=== PATIENT | female | born 1935 | race Caucasian/White ===

== ENCOUNTER 2018-01-05 16:23 | Inpatient (IN) | payer MEDICARE, OTHER ==
[~2018-01-05] VITALS: Ht 160 cm; Wt 68.0 kg
[2018-01-05 17:12] LABS: BASO # 0.1 x10^3/uL (0.0-0.2); BASO % 1 % (0-3); EOS # 0.1 x10^3/uL (0.0-0.7); EOS % 1 % (0-3); HEMATOCRIT 41.3 % (36.0-47.0); HEMOGLOBIN 13.7 g/dL (12.0-15.5); LYMPH # 2.4 x10^3/uL (1.0-4.8); LYMPH % 28 % (24-48); MEAN CORPUSCULAR HEMOGLOBIN 29 pg (25-35); MEAN CORPUSCULAR HGB CONC 33 g/dL (31-37); MEAN CORPUSCULAR VOLUME 89 fL (79-100); MONO # 0.8 x10^3/uL (0.0-1.1); MONO % 9 % (0-9); NEUT # 5.5 x10^3uL (1.8-7.7); NEUT % 62 % (31-73); PLATELET COUNT 325 x10^3/uL (140-400); RED BLOOD COUNT 4.65 x10^6/uL (3.50-5.40); RED CELL DISTRIBUTION WIDTH 14.6 % (11.5-14.5); WHITE BLOOD COUNT 8.9 x10^3/uL (4.0-11.0)
[2018-01-05 17:23] LABS: CALCIUM 9.3 mg/dL (8.5-10.1); CREATININE 0.8 mg/dL (0.6-1.0); GFR 68.7; POTASSIUM 4.3 mmol/L (3.5-5.1); TOTAL BILIRUBIN 0.4 mg/dL (0.2-1.0); TOTAL PROTEIN 8.2 g/dL (6.4-8.2)
--- NOTE | 2018-01-05 17:30 | PHYS DOC ---
Past History Past Medical History: Anemia, Dementia Past Surgical History: Other Alcohol Use: None Drug Use: None Adult General Chief Complaint Chief Complaint: PSYCH EVALUATION HPI HPI Patient is a 82 year old female who was brought in by her family members from [facility] for psych admission and medical clearance. Patient has history of dementia and was combative at arrival to ER but later on became cooperative and answered the questions appropriately. Patient is alert and oriented 1 and denies any problem. Review of Systems Review of Systems Constitutional: Denies fever or chills [] Eyes: Denies change in visual acuity, redness, or eye pain [] HENT: Denies nasal congestion or sore throat [] Respiratory: Denies cough or shortness of breath [] Cardiovascular: No additional information not addressed in HPI [] GI: Denies abdominal pain, nausea, vomiting, bloody stools or diarrhea [] : Denies dysuria or hematuria [] Musculoskeletal: Denies back pain or joint pain [] Integument: Denies rash or skin lesions [] Neurologic: Denies headache, focal weakness or sensory changes [] Endocrine: Denies polyuria or polydipsia [] All other systems were reviewed and found to be within normal limits, except as documented in this note. Physical Exam Physical Exam Constitutional: Well nourished, no acute distress, non-toxic appearance. [] HENT: Normocephalic, atraumatic, oropharynx moist, no oral exudates, nose normal. [] Eyes: PERRLA, EOMI, conjunctiva normal, no discharge. [] Neck: Normal range of motion, no tenderness, supple, no stridor. [] Cardiovascular:Heart rate regular rhythm, no murmur [] Lungs & Thorax: Bilateral breath sounds clear to auscultation [] Abdomen: Bowel sounds normal, soft, no tenderness, no masses, no pulsatile masses. [] Skin: Warm, dry, no erythema, no rash. [] Back: No tenderness, no CVA tenderness. [] Extremities: No tenderness, no cyanosis, no clubbing, ROM intact, no edema. [] Neurologic: Alert and oriented X 1, normal motor function, normal sensory function, no focal deficits noted. [] Psychologic: Affect anxious Current Patient Data Vital Signs Vital Signs Date Time Temp Pulse Resp B/P (MAP) Pulse Ox O2 Delivery O2 Flow Rate FiO2 01/05/18 16:25 97.6 69 22 97 Room Air Lab Results Laboratory Tests Test 01/05/18 16:50 White Blood Count 8.9 x10^3/uL (4.0-11.0) Red Blood Count 4.65 x10^6/uL (3.50-5.40) Hemoglobin 13.7 g/dL (12.0-15.5) Hematocrit 41.3 % (36.0-47.0) Mean Corpuscular Volume 89 fL (79-100) Mean Corpuscular Hemoglobin 29 pg (25-35) Mean Corpuscular Hemoglobin Concent 33 g/dL (31-37) Red Cell Distribution Width 14.6 % (11.5-14.5) H Platelet Count 325 x10^3/uL (140-400) Neutrophils (%) (Auto) 62 % (31-73) Lymphocytes (%) (Auto) 28 % (24-48) Monocytes (%) (Auto) 9 % (0-9) Eosinophils (%) (Auto) 1 % (0-3) Basophils (%) (Auto) 1 % (0-3) Neutrophils # (Auto) 5.5 x10^3uL (1.8-7.7) Lymphocytes # (Auto) 2.4 x10^3/uL (1.0-4.8) Monocytes # (Auto) 0.8 x10^3/uL (0.0-1.1) Eosinophils # (Auto) 0.1 x10^3/uL (0.0-0.7) Basophils # (Auto) 0.1 x10^3/uL (0.0-0.2) Sodium Level 140 mmol/L (136-145) Potassium Level 4.3 mmol/L (3.5-5.1) Chloride Level 102 mmol/L (98-107) Carbon Dioxide Level 28 mmol/L (21-32) Anion Gap 10 (6-14) Blood Urea Nitrogen 20 mg/dL (7-20) Creatinine 0.8 mg/dL (0.6-1.0) Estimated GFR (Cockcroft-Gault) 68.7 BUN/Creatinine Ratio 25 (6-20) H Glucose Level 110 mg/dL (70-99) H Calcium Level 9.3 mg/dL (8.5-10.1) Total Bilirubin 0.4 mg/dL (0.2-1.0) Aspartate Amino Transferase (AST) 16 U/L (15-37) Alanine Aminotransferase (ALT) 18 U/L (14-59) Alkaline Phosphatase 138 U/L (46-116) H Total Protein 8.2 g/dL (6.4-8.2) Albumin 4.0 g/dL (3.4-5.0) Albumin/Globulin Ratio 1.0 (1.0-1.7) EKG EKG EKG interpreted by me. EKG at 1639 showed sinus rhythm at rate of 67, leftward axis, no acute ST and T-wave abnormalities Radiology/Procedures Radiology/Procedures [] Course & Med Decision Making Course & Med Decision Making Evaluation of patient in ER showed 82-year-old male patient brought in by family members reports medical clearance for psych admission. Patient had agitated had unremarkable to ER that improved. Patient had unremarkable physical exam and labs with pending UA. Patient was medically cleared for psych admission. Dragon Disclaimer Dragon Disclaimer This electronic medical record was generated, in whole or in part, using a voice recognition dictation system. Departure Departure: Impression: Primary Impression: Medical clearance for psychiatric admission Additional Impressions: Dementia Behavior problem Disposition: 09 ADMITTED INPATIENT (at 1722 senior psych unit) Referrals: PCP,NO (PCP) Problem Qualifiers ALANNA VALENCIA MD Jan 05, 2018 17:30
[2018-01-05 18:27] LABS: BILIRUBIN,URINE NEG (NEG); CLARITY,URINE CLOUDY; COLOR,URINE YELLOW; GLUCOSE,URINE NEG (NEG); NITRITE,URINE NEG (NEG); UROBILINOGEN,URINE 0.2 mg/dL (0.2 mg/dL)
[2018-01-05 18:30] LABS: BACTERIA,URINE MANY /HPF (0-FEW)
--- NOTE | 2018-01-05 20:10 | EKG ---
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
[2018-01-06] MEDS ORDERED: MAGNESIUM HYDROXIDE 2,400 MG/30 ML ORAL.SUSP. PO PRN (00:15)
[2018-01-06] MEDS ORDERED: ACETAMINOPHEN 325 MG TABLET PO PRN (00:15)
[2018-01-06] MEDS ORDERED: METHYL SALICYLATE/MENTHOL TOPICAL OINTMENT 29GM TUBE. TP PRN (00:15)
[2018-01-06] MEDS ORDERED: MAG HYDROX/AL HYDROX/SIMETH 30 ML ORAL.SUSP PO PRN (00:15)
[2018-01-06 04:22] VITALS: BP 136/68
[2018-01-06 05:44] VITALS: BP 158/89
[2018-01-06 10:26] LABS: THYROID STIM HORMONE (TSH) 3.41 uIU/mL (0.358-3.740)
[2018-01-06 15:09] LABS: THYROXINE 7.6 ug/dL (4.5-12.0)
[2018-01-06 15:36] VITALS: BP 149/74
[2018-01-06] MEDS ORDERED: traZODone 50 MG TABLET. PO PRN (20:30)
[2018-01-06] MEDS: traZODone 50 MG TABLET. PO SCH (20:51)
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
[2018-01-06 22:14] LABS: HEMOGLOBIN A1C 5.7 % (4.8-5.6)
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
[2018-01-07 06:17] VITALS: BP 152/82
[2018-01-07 15:11] VITALS: BP 155/81
--- NOTE | 2018-01-07 20:00 | PDOC ---
Exam Note: Saul Note: Late entry for date of service January. Please also refer to the separate dictated note~for this date of service dictated separately.~Patient seen individually. Discussed the patient with Nursing staff reviewed the chart.~ Reviewed interim history and current functioning. Reviewed vital signs,~Labs/ Radiology~and current medications noted below. Continue current treatment with the changes noted in the dictated addendum note Assessment: Vital Signs: VS - Last 72 Hours, by Label Date Time Temp Pulse Resp B/P (MAP) Pulse Ox O2 Delivery O2 Flow Rate FiO2 01/07/18 15:11 97.1 73 18 155/81 (105) 98 01/07/18 06:17 97.7 69 22 152/82 (105) 98 01/06/18 15:36 98.2 63 18 149/74 (99) 96 01/06/18 05:44 97.0 62 18 158/89 (112) 97 01/06/18 04:22 97.6 18 136/68 (90) 97 01/05/18 16:25 97.6 69 22 97 Room Air Vital Signs Date Time Temp Pulse Resp B/P (MAP) Pulse Ox O2 Delivery O2 Flow Rate FiO2 01/07/18 15:11 97.1 73 18 155/81 (105) 98 01/05/18 16:25 Room Air I&O Intake and Output 01/07/18 06:59 Intake Total 480 ml Balance 480 ml Intake Oral 480 ml Current Medications: Meds: Current Medications Acetaminophen (Tylenol) 650 mg PRN Q6HRS PRN PO PAIN / TEMP; Start 01/06/18 at 00:15 Multi-Ingredient Ointment (Analgesic [place]) 1 jenelle PRN QID PRN TP MUSCLE PAIN; Start 01/06/18 at 00:15 Al Hydroxide/Mg Hydroxide (Mylanta Plus Xs) 15 ml PRN AFTMEALHC PRN PO DYSPEPSIA; Start 01/06/18 at 00:15 Magnesium Hydroxide (Milk Of Magnesia) 2,400 mg PRN QHS PRN PO CONSTIPATION; Start 01/06/18 at 00:15 Olanzapine (ZyPREXA ZYDIS) 2.5 mg PRN Q2HR PRN PO PSYCHOSIS; Start 01/06/18 at 02:00 Trazodone HCl (Desyrel) 50 mg QHS PO Last administered on 01/06/18at 20:51; Start 01/06/18 at 21:00 Trazodone HCl (Desyrel) 50 mg PRN QHS PRN PO INSOMNIA; Start 01/06/18 at 20:30 I have reviewed the current psychotropics carefully including drug interactions. Risk benefit ratio favors no change other than as noted in my dictated progress note. Diagnosis: Problems: (1) Dementia (2) Behavior problem (3) Medical clearance for psychiatric admission (4) Anxiety disorder (5) Dementia, vascular, with delusions (6) Dementia, vascular, with depression (7) Dementia in Alzheimer's disease with delusions (8) Dementia in Alzheimer's disease with depression (9) Impulse control disorder VIOLETTA DAVIES MD Jan 07, 2018 20:00
--- NOTE | 2018-01-07 20:01 | PDOC ---
Exam Note: Saul Note: Please also refer to the separate dictated note~for this date of service dictated separately.~Patient seen individually. Discussed the patient with Nursing staff reviewed the chart.~Reviewed interim history and current functioning. Reviewed vital signs,~Labs/ Radiology~and current medications noted below. Continue current treatment with the changes noted in the dictated addendum note Assessment: Vital Signs: Vital Signs Date Time Temp Pulse Resp B/P (MAP) Pulse Ox O2 Delivery O2 Flow Rate FiO2 01/07/18 15:11 97.1 73 18 155/81 (105) 98 01/05/18 16:25 Room Air I&O Intake and Output 01/07/18 06:59 Intake Total 480 ml Balance 480 ml Intake Oral 480 ml Current Medications: Meds: Current Medications Acetaminophen (Tylenol) 650 mg PRN Q6HRS PRN PO PAIN / TEMP; Start 01/06/18 at 00:15 Multi-Ingredient Ointment (Analgesic [place]) 1 jenelle PRN QID PRN TP MUSCLE PAIN; Start 01/06/18 at 00:15 Al Hydroxide/Mg Hydroxide (Mylanta Plus Xs) 15 ml PRN AFTMEALHC PRN PO DYSPEPSIA; Start 01/06/18 at 00:15 Magnesium Hydroxide (Milk Of Magnesia) 2,400 mg PRN QHS PRN PO CONSTIPATION; Start 01/06/18 at 00:15 Olanzapine (ZyPREXA ZYDIS) 2.5 mg PRN Q2HR PRN PO PSYCHOSIS; Start 01/06/18 at 02:00 Trazodone HCl (Desyrel) 50 mg QHS PO Last administered on 01/06/18at 20:51; Start 01/06/18 at 21:00 Trazodone HCl (Desyrel) 50 mg PRN QHS PRN PO INSOMNIA; Start 01/06/18 at 20:30 I have reviewed the current psychotropics carefully including drug interactions. Risk benefit ratio favors no change other than as noted in my dictated progress note. Diagnosis: Problems: (1) Dementia (2) Behavior problem (3) Medical clearance for psychiatric admission (4) Anxiety disorder (5) Dementia, vascular, with delusions (6) Dementia, vascular, with depression (7) Dementia in Alzheimer's disease with delusions (8) Dementia in Alzheimer's disease with depression (9) Impulse control disorder VIOLETTA DAVIES MD Jan 07, 2018 20:01
[2018-01-07] MEDS: traZODone 50 MG TABLET. PO SCH (20:23)
--- NOTE | 2018-01-08 01:29 | PN ---
DATE: 01/07/2018 This note covers elements not covered in my note of 01/07/2018. 1 met with the patient in the evening. The patient has been combative with care, punching at staff, at times very confused. REVIEW OF SYSTEMS: Ambulation impaired with walker. No CV, , pulmonary, eye, ENT system symptoms on review. Reliability poor. MENTAL STATUS EXAM: Oriented to herself. Insight, judgment, recent and remote memory, attention, concentration, fund of knowledge poor, consistent with her diagnosis as mentioned in my initial note. PLAN: No change from initial note. MAN Jack DAVIES MD DR: GEORGETTE/juwan JOB#: [id number] / [id number]
[2018-01-08 05:41] VITALS: BP 112/52
[2018-01-08 08:59] LABS: SQUAMOUS EPITHELIAL CELL,UR MANY /LPF
[2018-01-08 15:41] VITALS: BP 147/72
[2018-01-08] MEDS: traZODone 50 MG TABLET. PO SCH ×2 (20:06→21:00)
--- NOTE | 2018-01-08 20:45 | PDOC ---
Exam Note: Saul Note: Please also refer to the separate dictated note~for this date of service dictated separately.~Patient seen individually. Discussed the patient with Nursing staff reviewed the chart.~Reviewed interim history and current functioning. Reviewed vital signs,~Labs/ Radiology~and current medications noted below. Continue current treatment with the changes noted in the dictated addendum note Assessment: Vital Signs: Vital Signs Date Time Temp Pulse Resp B/P (MAP) Pulse Ox O2 Delivery O2 Flow Rate FiO2 01/08/18 15:41 97.6 77 18 147/72 (97) 98 01/08/18 05:41 Room Air I&O Intake and Output 01/08/18 06:59 Intake Total 640 ml Balance 640 ml Intake Oral 640 ml Current Medications: Meds: Current Medications Acetaminophen (Tylenol) 650 mg PRN Q6HRS PRN PO PAIN / TEMP; Start 01/06/18 at 00:15 Multi-Ingredient Ointment (Analgesic [place]) 1 jenelle PRN QID PRN TP MUSCLE PAIN; Start 01/06/18 at 00:15 Al Hydroxide/Mg Hydroxide (Mylanta Plus Xs) 15 ml PRN AFTMEALHC PRN PO DYSPEPSIA; Start 01/06/18 at 00:15 Magnesium Hydroxide (Milk Of Magnesia) 2,400 mg PRN QHS PRN PO CONSTIPATION; Start 01/06/18 at 00:15 Olanzapine (ZyPREXA ZYDIS) 2.5 mg PRN Q2HR PRN PO PSYCHOSIS Last administered on 01/07/18at 20:23; Start 01/06/18 at 02:00 Trazodone HCl (Desyrel) 50 mg QHS PO Last administered on 01/08/18at 20:06; Start 01/06/18 at 21:00 Trazodone HCl (Desyrel) 50 mg PRN QHS PRN PO INSOMNIA; Start 01/06/18 at 20:30 Sertraline HCl (Zoloft) 25 mg DAILY PO ; Start 01/09/18 at 09:00 I have reviewed the current psychotropics carefully including drug interactions. Risk benefit ratio favors no change other than as noted in my dictated progress note. Diagnosis: Problems: (1) Anxiety disorder (2) Dementia, vascular, with delusions (3) Dementia, vascular, with depression (4) Dementia in Alzheimer's disease with delusions (5) Dementia in Alzheimer's disease with depression (6) Impulse control disorder VIOLETTA DAVIES MD Jan 08, 2018 20:45
[2018-01-09 05:50] VITALS: BP 135/68
--- NOTE | 2018-01-09 07:53 | RAD ---
CT of the head without contrast, 01/09/2018: HISTORY: Altered mental status The patient's head is rotated. There is moderate cerebral atrophy. There are moderate patchy lucencies in the deep white matter bilaterally compatible with chronic ischemic change. The ventricles are within normal limits in size considering the presence of atrophy. There is no shift of the midline structures. There is no evidence of acute intracranial hemorrhage or mass effect. There is calcific plaquing of the distal internal carotid and vertebral arteries. IMPRESSION: 1. Cerebral atrophy. 2. Moderate bilateral deep white matter lucencies compatible with chronic ischemic change. 3. No acute intracranial abnormality is detected. Electronically signed by: Osiel Villalobos MD (01/09/2018 7:50 AM) [facility]
[2018-01-09] MEDS: SERTRALINE 25 MG TABLET. PO SCH (08:32)
[2018-01-09 16:30] VITALS: BP 164/69
--- NOTE | 2018-01-09 18:14 | PN ---
DATE: 01/08/2018 PSYCHIATRIC PROGRESS NOTE This late entry 01/08/2018 covers elements not covered in my initial note. SUBJECTIVE: I met with the patient in the evening. The patient slept 7 hours previous night. She has been irritable, labile, combative with cares per nursing report. She was worse after her daughter and son-in-law left following a visit earlier in the day. REVIEW OF SYSTEMS: Ambulation impaired with walker, at times wheelchair. No CV, , pulmonary, eye, ENT system symptoms on review. Reliability poor. She is fixated on wanting to get back to [place], [place] and I processed this with her. MENTAL STATUS EXAM: Oriented to herself. Insight, judgment, recent and remote memory, attention, concentration, fund of knowledge poor, consistent with her diagnosis mentioned in my initial note. IMPRESSION: Major neurocognitive disorder, Alzheimer, vascular with delusion, depression, behavioral disturbance; anxiety disorder, unspecified; impulse control disorder, unspecified. PLAN: Start Zoloft 25 mg a day for her mood and anxiety symptoms. Continue Zyprexa p.r.n., trazodone 50 mg at bedtime, may repeat x 1. May consider adding Exelon patch as well in a day or so. VIOLETTA DAVIES MD DR: GEORGETTE/juwan JOB#: [id number] / [id number]
[2018-01-09] MEDS: traZODone 50 MG TABLET. PO SCH ×2 (20:41→20:46)
--- NOTE | 2018-01-09 20:58 | PDOC ---
Exam Note: Saul Note: Please also refer to the separate dictated note~for this date of service dictated separately.~Patient seen individually. Discussed the patient with Nursing staff reviewed the chart.~Reviewed interim history and current functioning. Reviewed vital signs,~Labs/ Radiology~and current medications noted below. Continue current treatment with the changes noted in the dictated addendum note Assessment: Vital Signs: Vital Signs Date Time Temp Pulse Resp B/P (MAP) Pulse Ox O2 Delivery O2 Flow Rate FiO2 01/09/18 16:30 97.9 79 18 164/69 (100) 94 01/08/18 05:41 Room Air I&O Intake and Output 01/09/18 07:00 Intake Total 920 ml Balance 920 ml Intake Oral 920 ml # Voids 1 Current Medications: Meds: Current Medications Acetaminophen (Tylenol) 650 mg PRN Q6HRS PRN PO PAIN / TEMP; Start 01/06/18 at 00:15 Multi-Ingredient Ointment (Analgesic [place]) 1 jenelle PRN QID PRN TP MUSCLE PAIN; Start 01/06/18 at 00:15 Al Hydroxide/Mg Hydroxide (Mylanta Plus Xs) 15 ml PRN AFTMEALHC PRN PO DYSPEPSIA; Start 01/06/18 at 00:15 Magnesium Hydroxide (Milk Of Magnesia) 2,400 mg PRN QHS PRN PO CONSTIPATION; Start 01/06/18 at 00:15 Olanzapine (ZyPREXA ZYDIS) 2.5 mg PRN Q2HR PRN PO PSYCHOSIS Last administered on 01/07/18at 20:23; Start 01/06/18 at 02:00 Trazodone HCl (Desyrel) 50 mg QHS PO Last administered on 01/07/18at 20:23; Start 01/06/18 at 21:00 Trazodone HCl (Desyrel) 50 mg PRN QHS PRN PO INSOMNIA; Start 01/06/18 at 20:30 Sertraline HCl (Zoloft) 25 mg DAILY PO Last administered on 01/09/18at 08:32; Start 01/09/18 at 09:00 Rivastigmine (Exelon) 1 patch DAILY TD ; Start 01/10/18 at 09:00 I have reviewed the current psychotropics carefully including drug interactions. Risk benefit ratio favors no change other than as noted in my dictated progress note. Diagnosis: Problems: (1) Anxiety disorder (2) Dementia, vascular, with delusions (3) Dementia, vascular, with depression (4) Dementia in Alzheimer's disease with delusions (5) Dementia in Alzheimer's disease with depression (6) Impulse control disorder VIOLETTA DAVIES MD Jan 09, 2018 20:58
[2018-01-10 05:59] VITALS: BP 133/79
[2018-01-10] MEDS: SERTRALINE 25 MG TABLET. PO SCH (08:27)
[2018-01-10] MEDS: RIVASTIGMINE 4.6MG PATCH. TD SCH (08:28)
[2018-01-10 16:08] VITALS: BP 157/62
--- NOTE | 2018-01-10 20:21 | PN ---
DATE: 01/09/2018 PSYCHIATRIC PROGRESS NOTE This late entry 01/09/2018 covers elements not covered in my initial note. SUBJECTIVE: I met with the patient in the evening. The patient slept 8 hours previous evening, refusing medications. She is confused, anxious, and restless. She tried to bite the finger of nursing staff. CT head shows moderate bilateral deep white matter changes, chronic ischemic changes, no acute changes. REVIEW OF SYSTEMS: Ambulation impaired with walker. No CV, , pulmonary, eye system symptoms on review. She is in a wheelchair as I met with her. MENTAL STATUS EXAM: Oriented to herself. Insight, judgment, recent and remote memory, attention, concentration, fund of knowledge poor, consistent with her diagnosis. 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 LABORATORY DATA: Reviewed. IMPRESSION: Unchanged from initial note. PLAN: Start Exelon patch 4.6 mg a day for her dementia. Continue rest unchanged. VIOLETTA DAVIES MD DR: GEORGETTE/juwan JOB#: [id number] / [id number]
[2018-01-10] MEDS: traZODone 50 MG TABLET. PO SCH (20:24)
--- NOTE | 2018-01-10 20:49 | PDOC ---
Exam Note: Saul Note: Please also refer to the separate dictated note~for this date of service dictated separately.~Patient seen individually. Discussed the patient with Nursing staff reviewed the chart.~Reviewed interim history and current functioning. Reviewed vital signs,~Labs/ Radiology~and current medications noted below. Continue current treatment with the changes noted in the dictated addendum note Assessment: Vital Signs: Vital Signs Date Time Temp Pulse Resp B/P (MAP) Pulse Ox O2 Delivery O2 Flow Rate FiO2 01/10/18 16:08 97.0 67 20 157/62 (93) 97 01/08/18 05:41 Room Air I&O Intake and Output 01/10/18 07:00 Intake Total 840 ml Balance 840 ml Intake Oral 840 ml Current Medications: Meds: Current Medications Acetaminophen (Tylenol) 650 mg PRN Q6HRS PRN PO PAIN / TEMP; Start 01/06/18 at 00:15 Multi-Ingredient Ointment (Analgesic [place]) 1 jenelle PRN QID PRN TP MUSCLE PAIN; Start 01/06/18 at 00:15 Al Hydroxide/Mg Hydroxide (Mylanta Plus Xs) 15 ml PRN AFTMEALHC PRN PO DYSPEPSIA; Start 01/06/18 at 00:15 Magnesium Hydroxide (Milk Of Magnesia) 2,400 mg PRN QHS PRN PO CONSTIPATION; Start 01/06/18 at 00:15 Olanzapine (ZyPREXA ZYDIS) 2.5 mg PRN Q2HR PRN PO PSYCHOSIS Last administered on 01/07/18at 20:23; Start 01/06/18 at 02:00 Trazodone HCl (Desyrel) 50 mg QHS PO Last administered on 01/07/18at 20:23; Start 01/06/18 at 21:00 Trazodone HCl (Desyrel) 50 mg PRN QHS PRN PO INSOMNIA; Start 01/06/18 at 20:30 Sertraline HCl (Zoloft) 25 mg DAILY PO Last administered on 01/10/18at 08:27; Start 01/09/18 at 09:00; Stop 01/11/18 at 09:01 Rivastigmine (Exelon) 1 patch DAILY TD Last administered on 01/10/18at 08:28; Start 01/10/18 at 09:00 Sertraline HCl (Zoloft) 50 mg DAILY PO ; Start 01/12/18 at 09:00 I have reviewed the current psychotropics carefully including drug interactions. Risk benefit ratio favors no change other than as noted in my dictated progress note. Diagnosis: Problems: (1) Anxiety disorder (2) Dementia, vascular, with delusions (3) Dementia, vascular, with depression (4) Dementia in Alzheimer's disease with delusions (5) Dementia in Alzheimer's disease with depression (6) Impulse control disorder VIOLETTA DAVIES MD Jan 10, 2018 20:49
[2018-01-11 06:01] VITALS: BP 135/70
[2018-01-11] MEDS: SERTRALINE 25 MG TABLET. PO SCH (10:19)
[2018-01-11] MEDS: RIVASTIGMINE 4.6MG PATCH. TD SCH (10:20)
[2018-01-11 16:32] VITALS: BP 136/55
[2018-01-11] MEDS: traZODone 50 MG TABLET. PO SCH (20:10)
--- NOTE | 2018-01-11 20:22 | PN ---
DATE: 01/10/2018 PSYCHIATRIC PROGRESS NOTE This late entry 01/10/2018 covers elements not covered in my initial note. SUBJECTIVE: I met with the patient in the evening. The patient slept 7-1/2 hours previous night. She remains confused, irritable, grumpy, refused medications, refused trazodone. REVIEW OF SYSTEMS: No CV, , pulmonary, eye, ENT system symptoms on review. Ambulation impaired with walker. MENTAL STATUS EXAM: Oriented to herself. Insight, judgment, recent and remote memory, attention, concentration, fund of knowledge poor, consistent with her diagnosis mentioned in my initial note. PLAN: Increase Zoloft from 25 mg a day to 50 mg a day after she has been on 25 for 3 days. Continue rest unchanged including Exelon patch and trazodone. MAN Jack DAVIES MD DR: GEORGETTE/juwan JOB#: [id number] / [id number]
--- NOTE | 2018-01-11 20:38 | PDOC ---
Exam Note: Asul Note: Please also refer to the separate dictated note~for this date of service dictated separately.~Patient seen individually. Discussed the patient with Nursing staff reviewed the chart.~Reviewed interim history and current functioning. Reviewed vital signs,~Labs/ Radiology~and current medications noted below. Continue current treatment with the changes noted in the dictated addendum note Assessment: Vital Signs: Vital Signs Date Time Temp Pulse Resp B/P (MAP) Pulse Ox O2 Delivery O2 Flow Rate FiO2 01/11/18 16:32 97.7 62 17 136/55 (82) 98 Room Air I&O Intake and Output 01/11/18 07:00 Intake Total 360 ml Balance 360 ml Intake Oral 360 ml # Voids 1 # Bowel Movements 1 Current Medications: Meds: Current Medications Acetaminophen (Tylenol) 650 mg PRN Q6HRS PRN PO PAIN / TEMP; Start 01/06/18 at 00:15 Multi-Ingredient Ointment (Analgesic [place]) 1 jenelle PRN QID PRN TP MUSCLE PAIN; Start 01/06/18 at 00:15 Al Hydroxide/Mg Hydroxide (Mylanta Plus Xs) 15 ml PRN AFTMEALHC PRN PO DYSPEPSIA; Start 01/06/18 at 00:15 Magnesium Hydroxide (Milk Of Magnesia) 2,400 mg PRN QHS PRN PO CONSTIPATION; Start 01/06/18 at 00:15 Olanzapine (ZyPREXA ZYDIS) 2.5 mg PRN Q2HR PRN PO PSYCHOSIS Last administered on 01/07/18at 20:23; Start 01/06/18 at 02:00 Trazodone HCl (Desyrel) 50 mg QHS PO Last administered on 01/11/18at 20:10; Start 01/06/18 at 21:00 Trazodone HCl (Desyrel) 50 mg PRN QHS PRN PO INSOMNIA; Start 01/06/18 at 20:30 Sertraline HCl (Zoloft) 25 mg DAILY PO Last administered on 01/11/18at 10:19; Start 01/09/18 at 09:00; Stop 01/11/18 at 09:01; Status DC Rivastigmine (Exelon) 1 patch DAILY TD Last administered on 01/11/18at 10:20; Start 01/10/18 at 09:00; Stop 01/13/18 at 07:00 Sertraline HCl (Zoloft) 50 mg DAILY PO ; Start 01/12/18 at 09:00 Rivastigmine (Exelon) 1 patch DAILY TD ; Start 01/13/18 at 09:00 I have reviewed the current psychotropics carefully including drug interactions. Risk benefit ratio favors no change other than as noted in my dictated progress note. Diagnosis: Problems: (1) Anxiety disorder (2) Dementia, vascular, with delusions (3) Dementia, vascular, with depression (4) Dementia in Alzheimer's disease with delusions (5) Dementia in Alzheimer's disease with depression (6) Impulse control disorder VIOLETTA DAVIES MD Jan 11, 2018 20:38
[2018-01-12 06:01] VITALS: BP 148/69
[2018-01-12] MEDS: RIVASTIGMINE 4.6MG PATCH. TD SCH (08:41)
[2018-01-12] MEDS: SERTRALINE 50 MG TABLET. PO SCH (08:42)
[2018-01-12 15:40] VITALS: BP 159/69
[2018-01-12] MEDS: traZODone 50 MG TABLET. PO SCH (20:06)
--- NOTE | 2018-01-12 20:42 | PDOC ---
Exam Note: Saul Note: Please also refer to the separate dictated note~for this date of service dictated separately.~Patient seen individually. Discussed the patient with Nursing staff reviewed the chart.~Reviewed interim history and current functioning. Reviewed vital signs,~Labs/ Radiology~and current medications noted below. Continue current treatment with the changes noted in the dictated addendum note Assessment: Vital Signs: Vital Signs Date Time Temp Pulse Resp B/P (MAP) Pulse Ox O2 Delivery O2 Flow Rate FiO2 01/12/18 15:40 97.4 79 20 159/69 (99) 98 Room Air I&O Intake and Output 01/12/18 07:00 Intake Total 675 ml Balance 675 ml Intake Oral 675 ml # Voids 1 Current Medications: Meds: Current Medications Acetaminophen (Tylenol) 650 mg PRN Q6HRS PRN PO PAIN / TEMP; Start 01/06/18 at 00:15 Multi-Ingredient Ointment (Analgesic [place]) 1 jenelle PRN QID PRN TP MUSCLE PAIN; Start 01/06/18 at 00:15 Al Hydroxide/Mg Hydroxide (Mylanta Plus Xs) 15 ml PRN AFTMEALHC PRN PO DYSPEPSIA; Start 01/06/18 at 00:15 Magnesium Hydroxide (Milk Of Magnesia) 2,400 mg PRN QHS PRN PO CONSTIPATION; Start 01/06/18 at 00:15 Olanzapine (ZyPREXA ZYDIS) 2.5 mg PRN Q2HR PRN PO PSYCHOSIS Last administered on 01/07/18at 20:23; Start 01/06/18 at 02:00 Trazodone HCl (Desyrel) 50 mg QHS PO Last administered on 01/12/18at 20:06; Start 01/06/18 at 21:00 Trazodone HCl (Desyrel) 50 mg PRN QHS PRN PO INSOMNIA; Start 01/06/18 at 20:30 Sertraline HCl (Zoloft) 25 mg DAILY PO Last administered on 01/11/18at 10:19; Start 01/09/18 at 09:00; Stop 01/11/18 at 09:01; Status DC Rivastigmine (Exelon) 1 patch DAILY TD Last administered on 01/12/18at 08:41; Start 01/10/18 at 09:00; Stop 01/13/18 at 07:00 Sertraline HCl (Zoloft) 50 mg DAILY PO Last administered on 01/12/18at 08:42; Start 01/12/18 at 09:00 Rivastigmine (Exelon) 1 patch DAILY TD ; Start 01/13/18 at 09:00 I have reviewed the current psychotropics carefully including drug interactions. Risk benefit ratio favors no change other than as noted in my dictated progress note. Diagnosis: Problems: (1) Anxiety disorder (2) Dementia, vascular, with delusions (3) Dementia, vascular, with depression (4) Dementia in Alzheimer's disease with delusions (5) Dementia in Alzheimer's disease with depression (6) Impulse control disorder VIOLETTA DAVIES MD Jan 12, 2018 20:42
--- NOTE | 2018-01-12 21:49 | PN ---
DATE: 01/11/2018 PSYCHIATRIC PROGRESS NOTE This late entry 01/11/2018 covers elements not covered in my initial note. SUBJECTIVE: I met with the patient in the evening, staffed at a treatment team meeting with the entire team in the morning. The patient's son-in-law, Oliver, who is in an sailing officer, attended the meeting, which was lengthy. Discussed the patient's history, diagnosis. Worsening confusion recently with psychotic symptoms. The patient remains somewhat distracted, not very participative in activity therapy, resistive at times to medications, combative, sleeping about [address] head unremarkable. Appetite 60%. REVIEW OF SYSTEMS: Ambulation impaired, in wheelchair. No CV, , pulmonary, eye, ENT system symptoms on review. MENTAL STATUS EXAM: Oriented to herself. Insight, judgment, recent and remote memory, attention, concentration, fund of knowledge poor, consistent with her diagnosis. LABORATORY DATA: Reviewed. IMPRESSION: Major neurocognitive disorder, Alzheimer, vascular with delusion, depression, behavioral disturbance. Rest unchanged. PLAN: Increase Zoloft from 25 mg a day to 50 mg a day after 3 days of 25 and Exelon patch from 4.6 to 9.5 mg a day. Maintain rest of the psychotropics unchanged. VIOLETTA DAVIES MD DR: GEORGETTE/juwan JOB#: [id number] / [id number]
[2018-01-13 05:30] VITALS: BP 148/70
[2018-01-13] MEDS: SERTRALINE 50 MG TABLET. PO SCH (08:51)
[2018-01-13] MEDS: RIVASTIGMINE 9.5MG PATCH. TD SCH (08:51)
--- NOTE | 2018-01-13 12:57 | PN ---
DATE: 01/12/2018 PSYCHIATRIC PROGRESS NOTE This is a late entry 01/12/2018 covers elements not covered in my initial note. SUBJECTIVE: I met with the patient in the evening. Per nursing report, the patient slept 7-1/4 hours previous evening, takes her meds in coffee, has been less anxious, less agitated. REVIEW OF SYSTEMS: Ambulation impaired with walker. No CV, , pulmonary, eye system symptoms on review. MENTAL STATUS EXAM: Oriented to herself. Insight, judgment, recent and remote memory, attention, concentration, fund of knowledge poor, consistent with her diagnosis mentioned in my initial note. PLAN: No change from initial note. Zoloft will increase to 50 mg after 3 days on 25 and Exelon patch to 9.5 after 3 days on 4.6. Rest unchanged. MAN Jack DAVIES MD DR: GEORGETTE/juwan JOB#: [id number] / [id number]
[2018-01-13 16:18] VITALS: BP 159/76
[2018-01-13] MEDS: traZODone 50 MG TABLET. PO SCH (20:28)
--- NOTE | 2018-01-13 22:36 | PDOC ---
Exam Note: Saul Note: Please also refer to the separate dictated note~for this date of service dictated separately.~Patient seen individually. Discussed the patient with Nursing staff reviewed the chart.~Reviewed interim history and current functioning. Reviewed vital signs,~Labs/ Radiology~and current medications noted below. Continue current treatment with the changes noted in the dictated addendum note Assessment: Vital Signs: Vital Signs Date Time Temp Pulse Resp B/P (MAP) Pulse Ox O2 Delivery O2 Flow Rate FiO2 01/13/18 16:18 97.1 62 18 159/76 (103) 97 Room Air I&O Intake and Output 01/13/18 07:00 Intake Total 720 ml Balance 720 ml Intake Oral 720 ml # Voids 1 Current Medications: Meds: Current Medications Acetaminophen (Tylenol) 650 mg PRN Q6HRS PRN PO PAIN / TEMP; Start 01/06/18 at 00:15 Multi-Ingredient Ointment (Analgesic [place]) 1 jenelle PRN QID PRN TP MUSCLE PAIN; Start 01/06/18 at 00:15 Al Hydroxide/Mg Hydroxide (Mylanta Plus Xs) 15 ml PRN AFTMEALHC PRN PO DYSPEPSIA; Start 01/06/18 at 00:15 Magnesium Hydroxide (Milk Of Magnesia) 2,400 mg PRN QHS PRN PO CONSTIPATION; Start 01/06/18 at 00:15 Olanzapine (ZyPREXA ZYDIS) 2.5 mg PRN Q2HR PRN PO PSYCHOSIS Last administered on 01/07/18at 20:23; Start 01/06/18 at 02:00 Trazodone HCl (Desyrel) 50 mg QHS PO Last administered on 01/13/18at 20:28; Start 01/06/18 at 21:00 Trazodone HCl (Desyrel) 50 mg PRN QHS PRN PO INSOMNIA; Start 01/06/18 at 20:30 Sertraline HCl (Zoloft) 25 mg DAILY PO Last administered on 01/11/18at 10:19; Start 01/09/18 at 09:00; Stop 01/11/18 at 09:01; Status DC Rivastigmine (Exelon) 1 patch DAILY TD Last administered on 01/12/18at 08:41; Start 01/10/18 at 09:00; Stop 10/13/18 at 07:00; Status DC Sertraline HCl (Zoloft) 50 mg DAILY PO Last administered on 01/13/18at 08:51; Start 01/12/18 at 09:00 Rivastigmine (Exelon) 1 patch DAILY TD Last administered on 01/13/18at 08:51; Start 01/13/18 at 09:00 I have reviewed the current psychotropics carefully including drug interactions. Risk benefit ratio favors no change other than as noted in my dictated progress note. Diagnosis: Problems: (1) Anxiety disorder (2) Dementia, vascular, with delusions (3) Dementia, vascular, with depression (4) Dementia in Alzheimer's disease with delusions (5) Dementia in Alzheimer's disease with depression (6) Impulse control disorder VIOLETTA DAVIES MD Jan 13, 2018 22:36
[2018-01-14 06:17] VITALS: BP 136/70
[2018-01-14] MEDS: SERTRALINE 50 MG TABLET. PO SCH (07:30)
[2018-01-14] MEDS: RIVASTIGMINE 9.5MG PATCH. TD SCH (07:30)
[2018-01-14 08:29] LABS: BASO % 1 % (0-3); EOS # 0.1 x10^3/uL (0.0-0.7); EOS % 1 % (0-3); HEMOGLOBIN 12.3 g/dL (12.0-15.5); LYMPH # 1.3 x10^3/uL (1.0-4.8); LYMPH % 15 % (24-48); MEAN CORPUSCULAR HEMOGLOBIN 29 pg (25-35); MEAN CORPUSCULAR HGB CONC 33 g/dL (31-37); MEAN CORPUSCULAR VOLUME 89 fL (79-100); MONO # 0.6 x10^3/uL (0.0-1.1); MONO % 7 % (0-9); NEUT # 6.6 x10^3uL (1.8-7.7); NEUT % 76 % (31-73); PLATELET COUNT 319 x10^3/uL (140-400); RED BLOOD COUNT 4.18 x10^6/uL (3.50-5.40); RED CELL DISTRIBUTION WIDTH 14.1 % (11.5-14.5); WHITE BLOOD COUNT 8.6 x10^3/uL (4.0-11.0)
[2018-01-14 08:45] LABS: ALBUMIN 3.6 g/dL (3.4-5.0); ALBUMIN/GLOBULIN RATIO 0.9 (1.0-1.7); CALCIUM 8.9 mg/dL (8.5-10.1); CREATININE 0.7 mg/dL (0.6-1.0); GFR 80.1; POTASSIUM 3.7 mmol/L (3.5-5.1); TOTAL BILIRUBIN 0.4 mg/dL (0.2-1.0); TOTAL PROTEIN 7.5 g/dL (6.4-8.2)
[2018-01-14 16:03] VITALS: BP 141/79
[2018-01-14] MEDS: traZODone 50 MG TABLET. PO SCH (19:36)
--- NOTE | 2018-01-14 20:42 | PDOC ---
Exam Note: Saul Note: Please also refer to the separate dictated note~for this date of service dictated separately.~Patient seen individually. Discussed the patient with Nursing staff reviewed the chart.~Reviewed interim history and current functioning. Reviewed vital signs,~Labs/ Radiology~and current medications noted below. Continue current treatment with the changes noted in the dictated addendum note Assessment: Vital Signs: Vital Signs Date Time Temp Pulse Resp B/P (MAP) Pulse Ox O2 Delivery O2 Flow Rate FiO2 01/14/18 16:03 97.5 62 20 141/79 (99) 97 01/13/18 16:18 Room Air I&O Intake and Output 01/14/18 07:00 Intake Total 360 ml Balance 360 ml Intake Oral 360 ml # Voids 1 Labs: Laboratory Tests Test 01/14/18 07:42 White Blood Count 8.6 x10^3/uL (4.0-11.0) Red Blood Count 4.18 x10^6/uL (3.50-5.40) Hemoglobin 12.3 g/dL (12.0-15.5) Hematocrit 37.0 % (36.0-47.0) Mean Corpuscular Volume 89 fL (79-100) Mean Corpuscular Hemoglobin 29 pg (25-35) Mean Corpuscular Hemoglobin Concent 33 g/dL (31-37) Red Cell Distribution Width 14.1 % (11.5-14.5) Platelet Count 319 x10^3/uL (140-400) Neutrophils (%) (Auto) 76 % (31-73) H Lymphocytes (%) (Auto) 15 % (24-48) L Monocytes (%) (Auto) 7 % (0-9) Eosinophils (%) (Auto) 1 % (0-3) Basophils (%) (Auto) 1 % (0-3) Neutrophils # (Auto) 6.6 x10^3uL (1.8-7.7) Lymphocytes # (Auto) 1.3 x10^3/uL (1.0-4.8) Monocytes # (Auto) 0.6 x10^3/uL (0.0-1.1) Eosinophils # (Auto) 0.1 x10^3/uL (0.0-0.7) Basophils # (Auto) 0.0 x10^3/uL (0.0-0.2) Sodium Level 141 mmol/L (136-145) Potassium Level 3.7 mmol/L (3.5-5.1) Chloride Level 106 mmol/L (98-107) Carbon Dioxide Level 26 mmol/L (21-32) Anion Gap 9 (6-14) Blood Urea Nitrogen 20 mg/dL (7-20) Creatinine 0.7 mg/dL (0.6-1.0) Estimated GFR (Cockcroft-Gault) 80.1 BUN/Creatinine Ratio 29 (6-20) H Glucose Level 106 mg/dL (70-99) H Calcium Level 8.9 mg/dL (8.5-10.1) Total Bilirubin 0.4 mg/dL (0.2-1.0) Aspartate Amino Transferase (AST) 17 U/L (15-37) Alanine Aminotransferase (ALT) 19 U/L (14-59) Alkaline Phosphatase 129 U/L (46-116) H Total Protein 7.5 g/dL (6.4-8.2) Albumin 3.6 g/dL (3.4-5.0) Albumin/Globulin Ratio 0.9 (1.0-1.7) L Current Medications: Meds: Current Medications Acetaminophen (Tylenol) 650 mg PRN Q6HRS PRN PO PAIN / TEMP; Start 01/06/18 at 00:15 Multi-Ingredient Ointment (Analgesic [place]) 1 jenelle PRN QID PRN TP MUSCLE PAIN; Start 01/06/18 at 00:15 Al Hydroxide/Mg Hydroxide (Mylanta Plus Xs) 15 ml PRN AFTMEALHC PRN PO DYSPEPSIA; Start 01/06/18 at 00:15 Magnesium Hydroxide (Milk Of Magnesia) 2,400 mg PRN QHS PRN PO CONSTIPATION; Start 01/06/18 at 00:15 Olanzapine (ZyPREXA ZYDIS) 2.5 mg PRN Q2HR PRN PO PSYCHOSIS Last administered on 01/07/18at 20:23; Start 01/06/18 at 02:00 Trazodone HCl (Desyrel) 50 mg QHS PO Last administered on 01/14/18at 19:36; Start 01/06/18 at 21:00 Trazodone HCl (Desyrel) 50 mg PRN QHS PRN PO INSOMNIA; Start 01/06/18 at 20:30 Sertraline HCl (Zoloft) 25 mg DAILY PO Last administered on 01/11/18at 10:19; Start 01/09/18 at 09:00; Stop 01/11/18 at 09:01; Status DC Rivastigmine (Exelon) 1 patch DAILY TD Last administered on 01/12/18at 08:41; Start 01/10/18 at 09:00; Stop 01/13/18 at 07:00; Status DC Sertraline HCl (Zoloft) 50 mg DAILY PO Last administered on 01/14/18at 07:30; Start 01/12/18 at 09:00 Rivastigmine (Exelon) 1 patch DAILY TD Last administered on 01/14/18at 07:30; Start 01/13/18 at 09:00 I have reviewed the current psychotropics carefully including drug interactions. Risk benefit ratio favors no change other than as noted in my dictated progress note. Diagnosis: Problems: (1) Anxiety disorder (2) Dementia, vascular, with delusions (3) Dementia, vascular, with depression (4) Dementia in Alzheimer's disease with delusions (5) Dementia in Alzheimer's disease with depression (6) Impulse control disorder VIOLETTA DAVIES MD Jan 14, 2018 20:42
--- NOTE | 2018-01-15 02:15 | PN ---
DATE: 01/13/2018 PSYCHIATRIC PROGRESS NOTE This is a late entry of 01/13/2018 covers elements not covered in my initial note. SUBJECTIVE: I met with the patient in the evening. The patient slept 8 hours previous evening. She remains confused, otherwise pleasant, cooperative. REVIEW OF SYSTEMS: Ambulation impaired with walker. No CV, , pulmonary, eye, ENT system symptoms on review. Reliability poor. MENTAL STATUS EXAM: Oriented to herself. Insight, judgment, recent and remote memory, attention, concentration, fund of knowledge poor, consistent with her diagnosis mentioned in my initial note. PLAN: No change from initial note. MAN Jack DAVIES MD DR: GEORGETTE/juwan JOB#: [id number] / [id number]
[2018-01-15 06:26] VITALS: BP 145/72
[2018-01-15] MEDS: SERTRALINE 50 MG TABLET. PO SCH (07:35)
[2018-01-15] MEDS: RIVASTIGMINE 9.5MG PATCH. TD SCH (07:35)
[2018-01-15 16:08] VITALS: BP 176/71
[2018-01-15] MEDS: traZODone 50 MG TABLET. PO SCH (19:47)
--- NOTE | 2018-01-15 22:22 | PN ---
DATE: 01/14/2018 PSYCHIATRIC PROGRESS NOTE This late entry 01/14/2018 covers elements not covered in my initial note. SUBJECTIVE: I met with the patient in the evening. The patient slept 8 hours previous night. She has been irritable in the mornings, especially with lab draws; otherwise, compliant with medications. REVIEW OF SYSTEMS: Ambulation impaired, in wheelchair. No CV, , pulmonary, eye, ENT system symptoms on review. Very pleasant, smiling, verbal as I met with her, but confused. MENTAL STATUS EXAM: Oriented to herself. Insight, judgment, recent and remote memory, attention, concentration, fund of knowledge poor, consistent with her diagnosis mentioned in my initial note. PLAN: No change from initial note, may need to increase Zoloft in due course. MAN Jack DAVIES MD DR: GEORGETTE/juwan JOB#: [id number] / [id number]
--- NOTE | 2018-01-15 22:43 | PDOC ---
Exam Note: Saul Note: Please also refer to the separate dictated note~for this date of service dictated separately.~Patient seen individually. Discussed the patient with Nursing staff reviewed the chart.~Reviewed interim history and current functioning. Reviewed vital signs,~Labs/ Radiology~and current medications noted below. Continue current treatment with the changes noted in the dictated addendum note Assessment: Vital Signs: Vital Signs Date Time Temp Pulse Resp B/P (MAP) Pulse Ox O2 Delivery O2 Flow Rate FiO2 01/15/18 16:08 97.9 73 16 176/71 (106) 98 01/13/18 16:18 Room Air I&O Intake and Output 01/15/18 07:00 Intake Total 840 ml Balance 840 ml Intake Oral 840 ml Current Medications: Meds: Current Medications Acetaminophen (Tylenol) 650 mg PRN Q6HRS PRN PO PAIN / TEMP; Start 01/06/18 at 00:15 Multi-Ingredient Ointment (Analgesic [place]) 1 jenelle PRN QID PRN TP MUSCLE PAIN; Start 01/06/18 at 00:15 Al Hydroxide/Mg Hydroxide (Mylanta Plus Xs) 15 ml PRN AFTMEALHC PRN PO DYSPEPSIA; Start 01/06/18 at 00:15 Magnesium Hydroxide (Milk Of Magnesia) 2,400 mg PRN QHS PRN PO CONSTIPATION; Start 01/06/18 at 00:15 Olanzapine (ZyPREXA ZYDIS) 2.5 mg PRN Q2HR PRN PO PSYCHOSIS Last administered on 01/07/18at 20:23; Start 01/06/18 at 02:00 Trazodone HCl (Desyrel) 50 mg QHS PO Last administered on 01/15/18at 19:47; Start 01/06/18 at 21:00 Trazodone HCl (Desyrel) 50 mg PRN QHS PRN PO INSOMNIA; Start 01/06/18 at 20:30 Sertraline HCl (Zoloft) 25 mg DAILY PO Last administered on 01/11/18at 10:19; Start 01/09/18 at 09:00; Stop 01/11/18 at 09:01; Status DC Rivastigmine (Exelon) 1 patch DAILY TD Last administered on 01/12/18at 08:41; Start 01/10/18 at 09:00; Stop 01/13/18 at 07:00; Status DC Sertraline HCl (Zoloft) 50 mg DAILY PO Last administered on 01/15/18at 07:35; Start 01/12/18 at 09:00; Stop 01/15/18 at 17:21; Status DC Rivastigmine (Exelon) 1 patch DAILY TD Last administered on 01/15/18at 07:35; Start 01/13/18 at 09:00 Sertraline HCl (Zoloft) 75 mg DAILY PO ; Start 01/16/18 at 09:00 I have reviewed the current psychotropics carefully including drug interactions. Risk benefit ratio favors no change other than as noted in my dictated progress note. Diagnosis: Problems: (1) Anxiety disorder (2) Dementia, vascular, with delusions (3) Dementia, vascular, with depression (4) Dementia in Alzheimer's disease with delusions (5) Dementia in Alzheimer's disease with depression (6) Impulse control disorder VIOLETTA DAVIES MD Jan 15, 2018 22:43
[2018-01-16 06:21] VITALS: BP 134/73
[2018-01-16] MEDS: SERTRALINE 50 MG TABLET. PO SCH (07:43)
[2018-01-16] MEDS: RIVASTIGMINE 9.5MG PATCH. TD SCH (07:43)
[2018-01-16 16:21] VITALS: BP 160/71
[2018-01-16] MEDS: traZODone 50 MG TABLET. PO SCH (19:48)
--- NOTE | 2018-01-16 23:09 | PDOC ---
Exam Note: Saul Note: Please also refer to the separate dictated note~for this date of service dictated separately.~Patient seen individually. Discussed the patient with Nursing staff reviewed the chart.~Reviewed interim history and current functioning. Reviewed vital signs,~Labs/ Radiology~and current medications noted below. Continue current treatment with the changes noted in the dictated addendum note Assessment: Vital Signs: Vital Signs Date Time Temp Pulse Resp B/P (MAP) Pulse Ox O2 Delivery O2 Flow Rate FiO2 01/16/18 16:21 97.2 65 18 160/71 (100) 99 01/13/18 16:18 Room Air I&O Intake and Output 01/16/18 07:00 Intake Total 720 ml Balance 720 ml Intake Oral 720 ml Current Medications: Meds: Current Medications Acetaminophen (Tylenol) 650 mg PRN Q6HRS PRN PO PAIN / TEMP; Start 01/06/18 at 00:15 Multi-Ingredient Ointment (Analgesic [place]) 1 jenelle PRN QID PRN TP MUSCLE PAIN; Start 01/06/18 at 00:15 Al Hydroxide/Mg Hydroxide (Mylanta Plus Xs) 15 ml PRN AFTMEALHC PRN PO DYSPEPSIA; Start 01/06/18 at 00:15 Magnesium Hydroxide (Milk Of Magnesia) 2,400 mg PRN QHS PRN PO CONSTIPATION; Start 01/06/18 at 00:15 Olanzapine (ZyPREXA ZYDIS) 2.5 mg PRN Q2HR PRN PO PSYCHOSIS Last administered on 01/07/18at 20:23; Start 01/06/18 at 02:00 Trazodone HCl (Desyrel) 50 mg QHS PO Last administered on 01/16/18at 19:48; Start 01/06/18 at 21:00 Trazodone HCl (Desyrel) 50 mg PRN QHS PRN PO INSOMNIA; Start 01/06/18 at 20:30 Sertraline HCl (Zoloft) 25 mg DAILY PO Last administered on 01/11/18at 10:19; Start 01/09/18 at 09:00; Stop 01/11/18 at 09:01; Status DC Rivastigmine (Exelon) 1 patch DAILY TD Last administered on 01/12/18at 08:41; Start 01/10/18 at 09:00; Stop 01/13/18 at 07:00; Status DC Sertraline HCl (Zoloft) 50 mg DAILY PO Last administered on 01/15/18at 07:35; Start 01/12/18 at 09:00; Stop 01/15/18 at 17:21; Status DC Rivastigmine (Exelon) 1 patch DAILY TD Last administered on 01/16/18at 07:43; Start 01/13/18 at 09:00 Sertraline HCl (Zoloft) 75 mg DAILY PO Last administered on 01/16/18at 07:43; Start 01/16/18 at 09:00 I have reviewed the current psychotropics carefully including drug interactions. Risk benefit ratio favors no change other than as noted in my dictated progress note. Diagnosis: Problems: (1) Anxiety disorder (2) Dementia, vascular, with delusions (3) Dementia, vascular, with depression (4) Dementia in Alzheimer's disease with delusions (5) Dementia in Alzheimer's disease with depression (6) Impulse control disorder VIOLETTA DAVIES MD Jan 16, 2018 23:09
--- NOTE | 2018-01-17 04:30 | PN ---
DATE: 01/15/2018 This is a late entry for 01/15/2018 covers elements not covered in my initial note. SUBJECTIVE: I met with the patient in the evening. The patient slept 7-1/2 hours previous night, somewhat anxious, but less irritable. REVIEW OF SYSTEMS: Ambulation impaired, in wheelchair. No CV, , pulmonary, eye, ENT system symptoms on review. MENTAL STATUS EXAM: Oriented to herself. Insight, judgment, recent and remote memory, attention, concentration, fund of knowledge poor, consistent with her diagnosis. She is quite pleasant, smiling, verbal as I met with her, but confused. LABORATORY DATA: Reviewed. IMPRESSION: Unchanged from initial note. PLAN: Increase Zoloft to 75 mg a day. Rest unchanged for now. MAN Jack DAVIES MD DR: GEORGETTE/juwan JOB#: [id number] / [id number]
[2018-01-17 05:55] VITALS: BP 139/73
[2018-01-17] MEDS: SERTRALINE 50 MG TABLET. PO SCH (08:26)
[2018-01-17] MEDS: RIVASTIGMINE 9.5MG PATCH. TD SCH (08:27)
[2018-01-17 16:23] VITALS: BP 122/78
[2018-01-17] MEDS: traZODone 50 MG TABLET. PO SCH (19:40)
--- NOTE | 2018-01-17 21:47 | PN ---
DATE: 01/16/2018 PSYCHIATRIC PROGRESS NOTE This late entry 01/16/2018 covers elements not covered in my initial note. SUBJECTIVE: I met with the patient in the evening. The patient slept 7 hours previous evening, somewhat resistive to medications, but does accept it with some persistence from staff. She has not been agitated, aggressive. She certainly remains confused, specifically for short-term memory. REVIEW OF SYSTEMS: Ambulation impaired with walker. No CV, , pulmonary, eye, ENT system symptoms on review. MENTAL STATUS EXAM: Oriented to herself and situation. Insight, judgment, recent memory is impaired, remote is better. Language function intact, attention span short. Mood and affect less anxious and labile, though little worse in the evening than in the morning time. LABORATORY DATA: Reviewed. IMPRESSION: Major neurocognitive disorder, Alzheimer, vascular with delusion, depression; anxiety disorder, unspecified. Rest unchanged. PLAN: No change from my initial note. Maintain psychotropics including trazodone for insomnia, Zoloft, and Exelon patch. MAN Jack DAVIES MD DR: GEORGETTE/juwan JOB#: [id number] / [id number]
--- NOTE | 2018-01-17 23:15 | PDOC ---
Exam Note: Saul Note: Please also refer to the separate dictated note~for this date of service dictated separately.~Patient seen individually. Discussed the patient with Nursing staff reviewed the chart.~Reviewed interim history and current functioning. Reviewed vital signs,~Labs/ Radiology~and current medications noted below. Continue current treatment with the changes noted in the dictated addendum note Assessment: Vital Signs: Vital Signs Date Time Temp Pulse Resp B/P (MAP) Pulse Ox O2 Delivery O2 Flow Rate FiO2 01/17/18 16:23 97.8 67 16 122/78 (93) 94 01/13/18 16:18 Room Air I&O Intake and Output 01/17/18 07:00 Intake Total 840 ml Balance 840 ml Intake Oral 840 ml Current Medications: Meds: Current Medications Acetaminophen (Tylenol) 650 mg PRN Q6HRS PRN PO PAIN / TEMP; Start 01/06/18 at 00:15 Multi-Ingredient Ointment (Analgesic [place]) 1 jenelle PRN QID PRN TP MUSCLE PAIN; Start 01/06/18 at 00:15 Al Hydroxide/Mg Hydroxide (Mylanta Plus Xs) 15 ml PRN AFTMEALHC PRN PO DYSPEPSIA; Start 01/06/18 at 00:15 Magnesium Hydroxide (Milk Of Magnesia) 2,400 mg PRN QHS PRN PO CONSTIPATION; Start 01/06/18 at 00:15 Olanzapine (ZyPREXA ZYDIS) 2.5 mg PRN Q2HR PRN PO PSYCHOSIS Last administered on 01/07/18at 20:23; Start 01/06/18 at 02:00 Trazodone HCl (Desyrel) 50 mg QHS PO Last administered on 01/17/18at 19:40; Start 01/06/18 at 21:00 Trazodone HCl (Desyrel) 50 mg PRN QHS PRN PO INSOMNIA; Start 01/06/18 at 20:30 Sertraline HCl (Zoloft) 25 mg DAILY PO Last administered on 01/11/18at 10:19; Start 01/09/18 at 09:00; Stop 01/11/18 at 09:01; Status DC Rivastigmine (Exelon) 1 patch DAILY TD Last administered on 01/12/18at 08:41; Start 01/10/18 at 09:00; Stop 01/13/18 at 07:00; Status DC Sertraline HCl (Zoloft) 50 mg DAILY PO Last administered on 01/15/18at 07:35; Start 01/12/18 at 09:00; Stop 01/15/18 at 17:21; Status DC Rivastigmine (Exelon) 1 patch DAILY TD Last administered on 01/17/18at 08:27; Start 01/13/18 at 09:00 Sertraline HCl (Zoloft) 75 mg DAILY PO Last administered on 01/17/18at 08:26; Start 01/16/18 at 09:00 Quetiapine Fumarate (SEROquel) 12.5 mg BID@0900,1700 PO ; Start 01/18/18 at 09: 00 I have reviewed the current psychotropics carefully including drug interactions. Risk benefit ratio favors no change other than as noted in my dictated progress note. Diagnosis: Problems: (1) Anxiety disorder (2) Dementia, vascular, with delusions (3) Dementia, vascular, with depression (4) Dementia in Alzheimer's disease with delusions (5) Dementia in Alzheimer's disease with depression (6) Impulse control disorder VIOLETTA DAVIES MD Jan 17, 2018 23:15
[2018-01-18 06:16] VITALS: BP 157/64
[2018-01-18] MEDS: QUEtiapine 25 MG TABLET. PO SCH ×2 (08:07→17:04)
[2018-01-18] MEDS: SERTRALINE 50 MG TABLET. PO SCH (08:07)
[2018-01-18] MEDS: RIVASTIGMINE 9.5MG PATCH. TD SCH (08:09)
[2018-01-18 16:04] VITALS: BP 147/72
[2018-01-18] MEDS: traZODone 50 MG TABLET. PO SCH ×2 (19:27→19:58)
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
[2018-01-18] MEDS ORDERED: ACET325T9 PO (23:17)
[2018-01-18] MEDS ORDERED: MAG30ORA2 PO (23:17)
[2018-01-18] MEDS ORDERED: MAGN2400 PO (23:18)
[2018-01-18] MEDS ORDERED: METH29OI TP (23:20)
[2018-01-18] MEDS ORDERED: OLAN5TAB5 PO (23:21)
[2018-01-18] MEDS ORDERED: QUET25TA5 PO (23:23)
[2018-01-18] MEDS ORDERED: RIVA1PAT23 TD (23:27)
[2018-01-18] MEDS ORDERED: TRAZ-85 PO ×2 (23:28→23:29)
[2018-01-18] MEDS ORDERED: SERT50TA PO (23:28)
[2018-01-18] MEDS ORDERED: SERT25TA PO (23:28)
--- NOTE | 2018-01-18 23:32 | PDOC ---
Exam Note: Saul Note: Please also refer to the separate dictated note~for this date of service dictated separately.~Patient seen individually. Discussed the patient with Nursing staff reviewed the chart.~Reviewed interim history and current functioning. Reviewed vital signs,~Labs/ Radiology~and current medications noted below. Continue current treatment with the changes noted in the dictated addendum note Assessment: Vital Signs: Vital Signs Date Time Temp Pulse Resp B/P (MAP) Pulse Ox O2 Delivery O2 Flow Rate FiO2 01/18/18 16:04 98.5 75 16 147/72 (97) 98 01/13/18 16:18 Room Air I&O Intake and Output 01/18/18 07:00 Intake Total 1080 ml Balance 1080 ml Intake Oral 1080 ml Current Medications: Meds: Current Medications Acetaminophen (Tylenol) 650 mg PRN Q6HRS PRN PO PAIN / TEMP; Start 01/06/18 at 00:15 Multi-Ingredient Ointment (Analgesic [place]) 1 jenelle PRN QID PRN TP MUSCLE PAIN; Start 01/06/18 at 00:15 Al Hydroxide/Mg Hydroxide (Mylanta Plus Xs) 15 ml PRN AFTMEALHC PRN PO DYSPEPSIA; Start 01/06/18 at 00:15 Magnesium Hydroxide (Milk Of Magnesia) 2,400 mg PRN QHS PRN PO CONSTIPATION; Start 01/06/18 at 00:15 Olanzapine (ZyPREXA ZYDIS) 2.5 mg PRN Q2HR PRN PO PSYCHOSIS Last administered on 01/07/18at 20:23; Start 01/06/18 at 02:00 Trazodone HCl (Desyrel) 50 mg QHS PO Last administered on 01/17/18at 19:40; Start 01/06/18 at 21:00 Trazodone HCl (Desyrel) 50 mg PRN QHS PRN PO INSOMNIA; Start 01/06/18 at 20:30 Sertraline HCl (Zoloft) 25 mg DAILY PO Last administered on 01/11/18at 10:19; Start 01/09/18 at 09:00; Stop 01/11/18 at 09:01; Status DC Rivastigmine (Exelon) 1 patch DAILY TD Last administered on 01/12/18at 08:41; Start 01/10/18 at 09:00; Stop 01/13/18 at 07:00; Status DC Sertraline HCl (Zoloft) 50 mg DAILY PO Last administered on 01/15/18at 07:35; Start 01/12/18 at 09:00; Stop 01/15/18 at 17:21; Status DC Rivastigmine (Exelon) 1 patch DAILY TD Last administered on 01/18/18at 08:09; Start 01/13/18 at 09:00 Sertraline HCl (Zoloft) 75 mg DAILY PO Last administered on 01/18/18at 08:07; Start 01/16/18 at 09:00 Quetiapine Fumarate (SEROquel) 12.5 mg BID@0900,1700 PO Last administered on at 17:04; Start 01/18/18 at 09:00 Active Scripts Active Reported Trazodone Hcl 50 Mg Tablet 50 Mg PO PRN QHS PRN Trazodone Hcl 50 Mg Tablet 50 Mg PO QHS Zoloft (Sertraline Hcl) 50 Mg Tablet 50 Mg PO DAILY Zoloft (Sertraline Hcl) 25 Mg Tablet 25 Mg PO DAILY EXELON 9.5mg/24hr (Rivastigmine) 1 Each Patch.td24 1 Patch TD DAILY Seroquel (Quetiapine Fumarate) 25 Mg Tablet 12.5 Mg PO BID95 Zyprexa Zydis (Olanzapine) 5 Mg Tab.rapdis 2.5 Mg PO PRN Q2HR PRN Analgesic [place] (Methyl Salicylate/Menthol) 28 Gm Oint...g. 1 Applic TP PRN QID PRN Milk Of Magnesia (Magnesium Hydroxide) 2,400 Mg/10 Ml Oral.susp 2,400 Mg PO PRN QHS PRN Mag-Al Plus Xs Suspension (Mag Hydrox/Al Hydrox/Simeth) 30 Ml Oral.susp 15 Ml PO PRN AFTMEALHC PRN Tylenol (Acetaminophen) 325 Mg Tablet 650 Mg PO PRN Q6HRS PRN I have reviewed the current psychotropics carefully including drug interactions. Risk benefit ratio favors no change other than as noted in my dictated progress note. Diagnosis: Problems: (1) Anxiety disorder (2) Dementia, vascular, with delusions (3) Dementia, vascular, with depression (4) Dementia in Alzheimer's disease with delusions (5) Dementia in Alzheimer's disease with depression (6) Impulse control disorder VIOLETTA DAVIES MD Jan 18, 2018 23:32
[2018-01-19 06:15] VITALS: BP 131/65
[2018-01-19] MEDS: QUEtiapine 25 MG TABLET. PO SCH ×2 (08:33→17:28)
[2018-01-19] MEDS: SERTRALINE 50 MG TABLET. PO SCH (08:35)
[2018-01-19] MEDS: RIVASTIGMINE 9.5MG PATCH. TD SCH (08:36)
[2018-01-19 15:50] VITALS: BP 156/63
[2018-01-19] MEDS: traZODone 50 MG TABLET. PO SCH ×2 (19:18→19:50)
--- NOTE | 2018-01-19 22:19 | PN ---
DATE: 01/18/2018 PSYCHIATRIC PROGRESS NOTE This late entry 01/18/2018 covers elements not covered in my initial note. SUBJECTIVE: I met with the patient in the evening and met with her son-in-law in in the morning. Discussed the patient's diagnosis, progress, current medications, discharge plans for 01/20/2018 at length and family will be taking her back to [place], [place]. Discussed the fact that the patient was on Seroquel 12.5 b.i.d. and starting in about a month or so, it could be gradually tapered. Zoloft could stay for 6 or 7 months, may need to taper after that depending on how she is doing. REVIEW OF SYSTEMS: Ambulation impaired with walker. No CV, , pulmonary, eye, ENT system symptoms on review. MENTAL STATUS EXAM: Oriented to herself and situation. Speech has some latency, coherent. Mood appears somewhat depressed. Abstraction fair. Computation, unable to do serial 7's. Attention span short. Language function intact. Mood and affect overall showing some improvement. LABORATORY DATA: Reviewed. IMPRESSION: Unchanged from initial note. PLAN: No change from initial note. MAN Jack DAVIES MD DR: GEORGETTE/juwan JOB#: [id number] / [id number]
--- NOTE | 2018-01-19 23:14 | PDOC ---
Exam Note: Saul Note: Please also refer to the separate dictated note~for this date of service dictated separately.~Patient seen individually. Discussed the patient with Nursing staff reviewed the chart.~Reviewed interim history and current functioning. Reviewed vital signs,~Labs/ Radiology~and current medications noted below. Continue current treatment with the changes noted in the dictated addendum note Assessment: Vital Signs: Vital Signs Date Time Temp Pulse Resp B/P (MAP) Pulse Ox O2 Delivery O2 Flow Rate FiO2 01/19/18 15:50 97.4 66 20 156/63 (94) 98 Room Air I&O Intake and Output 01/19/18 07:00 Intake Total 960 ml Output Total 1 ml Balance 959 ml Intake Oral 960 ml Output Urine Total 1 ml Current Medications: Meds: Current Medications Acetaminophen (Tylenol) 650 mg PRN Q6HRS PRN PO PAIN / TEMP; Start 01/06/18 at 00:15 Multi-Ingredient Ointment (Analgesic [place]) 1 jenelle PRN QID PRN TP MUSCLE PAIN; Start 01/06/18 at 00:15 Al Hydroxide/Mg Hydroxide (Mylanta Plus Xs) 15 ml PRN AFTMEALHC PRN PO DYSPEPSIA; Start 01/06/18 at 00:15 Magnesium Hydroxide (Milk Of Magnesia) 2,400 mg PRN QHS PRN PO CONSTIPATION; Start 01/06/18 at 00:15 Olanzapine (ZyPREXA ZYDIS) 2.5 mg PRN Q2HR PRN PO PSYCHOSIS Last administered on 01/07/18at 20:23; Start 01/06/18 at 02:00 Trazodone HCl (Desyrel) 50 mg QHS PO Last administered on 01/17/18at 19:40; Start 01/06/18 at 21:00 Trazodone HCl (Desyrel) 50 mg PRN QHS PRN PO INSOMNIA; Start 01/06/18 at 20:30 Sertraline HCl (Zoloft) 25 mg DAILY PO Last administered on 01/11/18at 10:19; Start 01/09/18 at 09:00; Stop 01/11/18 at 09:01; Status DC Rivastigmine (Exelon) 1 patch DAILY TD Last administered on 01/12/18at 08:41; Start 01/10/18 at 09:00; Stop 01/13/18 at 07:00; Status DC Sertraline HCl (Zoloft) 50 mg DAILY PO Last administered on 01/15/18at 07:35; Start 01/12/18 at 09:00; Stop 01/15/18 at 17:21; Status DC Rivastigmine (Exelon) 1 patch DAILY TD Last administered on 01/19/18at 08:36; Start 01/13/18 at 09:00 Sertraline HCl (Zoloft) 75 mg DAILY PO Last administered on 01/19/18at 08:35; Start 01/16/18 at 09:00; Stop 01/19/18 at 11:43; Status DC Quetiapine Fumarate (SEROquel) 12.5 mg BID@0900,1700 PO Last administered on at 17:28; Start 01/18/18 at 09:00 Sertraline HCl (Zoloft) 100 mg DAILY PO ; Start 01/20/18 at 09:00 Active Scripts Active Reported Trazodone Hcl 50 Mg Tablet 50 Mg PO PRN QHS PRN Trazodone Hcl 50 Mg Tablet 50 Mg PO QHS Zoloft (Sertraline Hcl) 50 Mg Tablet 50 Mg PO DAILY Zoloft (Sertraline Hcl) 25 Mg Tablet 25 Mg PO DAILY EXELON 9.5mg/24hr (Rivastigmine) 1 Each Patch.td24 1 Patch TD DAILY Seroquel (Quetiapine Fumarate) 25 Mg Tablet 12.5 Mg PO BID95 Zyprexa Zydis (Olanzapine) 5 Mg Tab.rapdis 2.5 Mg PO PRN Q2HR PRN Analgesic [place] (Methyl Salicylate/Menthol) 28 Gm Oint...g. 1 Applic TP PRN QID PRN Milk Of Magnesia (Magnesium Hydroxide) 2,400 Mg/10 Ml Oral.susp 2,400 Mg PO PRN QHS PRN Mag-Al Plus Xs Suspension (Mag Hydrox/Al Hydrox/Simeth) 30 Ml Oral.susp 15 Ml PO PRN AFTMEALHC PRN Tylenol (Acetaminophen) 325 Mg Tablet 650 Mg PO PRN Q6HRS PRN I have reviewed the current psychotropics carefully including drug interactions. Risk benefit ratio favors no change other than as noted in my dictated progress note. Diagnosis: Problems: (1) Anxiety disorder (2) Dementia, vascular, with delusions (3) Dementia, vascular, with depression (4) Dementia in Alzheimer's disease with delusions (5) Dementia in Alzheimer's disease with depression (6) Impulse control disorder VIOLETTA DAVIES MD Jan 19, 2018 23:13
[2018-01-20 06:25] VITALS: BP 155/74
[2018-01-20] MEDS: QUEtiapine 25 MG TABLET. PO SCH (07:49)
[2018-01-20] MEDS: RIVASTIGMINE 9.5MG PATCH. TD SCH (07:49)
[2018-01-20] MEDS ORDERED: SERTRALINE 100 MG TABLET. PO SCH (09:00)
[2018-01-20] MEDS ORDERED: SERT100T PO (11:12)
--- NOTE | 2018-01-22 01:43 | PN ---
DATE: 01/19/2018 This is a late entry for 01/19/2018 covers elements not covered in my initial note. SUBJECTIVE: I met with the patient in the morning. The patient slept 8-3/4 hours previous evening, received trazodone previous night, resistive to a.m. medication. She was somewhat sad, tearful as I met with her, stating she wanted to be back in [place], [place]. I discussed with her tentative discharge on 01/20/2018 and she was not aware of this even though we discussed it previously. Her short-term memory is the problem, which worsens her mood. REVIEW OF SYSTEMS: No CV, , pulmonary, eye, ENT system symptoms on review. Reliability poor. MENTAL STATUS EXAM: Oriented to herself. Insight, judgment, recent and remote memory, attention, concentration, fund of knowledge poor, consistent with her diagnosis mentioned in my initial note. PLAN: No change from initial note. Increase Zoloft from 75 mg a day to 100 mg a day. Rest unchanged. She was given a shower on 01/19/2018, was somewhat resistive to this. MAN Jack DAVIES MD DR: GEORGETTE/juwan JOB#: [id number] / [id number]
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
== END 2018-01-20 12:50 | disposition home or self-care (01) | DRG 57 ==
LOC: ER 16:32 → GEROPSY 20:30 → UNDOADMIN 01-06 00:02
PROVIDERS: ADMIT Psychiatry & Neurology Psychiatry; ATTEND Psychiatry & Neurology Psychiatry
DX: G30.9 Alzheimer's disease, unspecified (principal); F01.51 Vascular dementia, unspecified severity, with behavioral disturbance; F02.81 Dementia in other diseases classified elsewhere, unspecified severity, with behavioral disturbance; N39.0 Urinary tract infection, site not specified; D64.9 Anemia, unspecified; F32.9 Major depressive disorder, single episode, unspecified; F41.9 Anxiety disorder, unspecified; G47.00 Insomnia, unspecified; F63.9 Impulse disorder, unspecified; M16.10 Unilateral primary osteoarthritis, unspecified hip; Z96.642 Presence of left artificial hip joint; Z91.81 History of falling; Z87.81 Personal history of (healed) traumatic fracture; Z79.899 Other long term (current) drug therapy; Z91.83 Wandering in diseases classified elsewhere
CPT/HCPCS: 36415; 70450; 80053; 80061; 81001; 83036; 83540; 83550; 83735; 84436; 84443; 84480; 85025; 86592; 87086; 93005; 97110; 97530; 99285-25